=== PATIENT | male | born 1975 | race Caucasian/White ===

== ENCOUNTER → 2019-06-25 15:03 | Outpatient (CLI) | payer OTHER, SELFPAY ==
--- NOTE | 2019-06-25 | DI.RAD.S_ITS ---
PROCEDURE: XR CHEST 2V INDICATIONS: pleural effusion TECHNIQUE: 2 views of the chest were acquired. COMPARISON: None. FINDINGS: Surgical changes and devices: Sternotomy. Lungs and pleura: Small bilateral effusions are present with bibasilar atelectasis. A linear density is noted in the right apex. Mediastinum: Mediastinal contours are normal. Heart size is normal. Bones and chest wall: No suspicious bony abnormalities. Soft tissues appear unremarkable. IMPRESSION: 1. Small bilateral effusions are present. 2. A linear density is noted in the right apex, most likely an artifact as pulmonary vessels can be seen superior to the density. The small pneumothorax is less likely. There is no evidence for tension pneumothorax. If there is increasing shortness of breath, an expiratory chest x-ray is recommended for followup evaluation. The result was discussed with Dr. Mahajan on 06/25/2019 at 1715 hours. Dictated by: Mindi Yang M.D. on 06/25/2019 at 16:57 Approved by: Mindi Yang M.D. on 06/25/2019 at 18:02
[2019-06-25 16:18] LABS: Blood Urea Nitrogen 17 mg/dL (9-20); Calcium 9.9 mg/dL (8.4-10.2); Carbon Dioxide 28 mmol/L (22-32); Chloride 102 mmol/L (98-107); Estimated Glomerular Filt Rate > 60.0 mL/min (>60); Glucose 81 mg/dL (70-100); HEMOLYSIS < 15 (0-50); Sodium 141 mmol/L (137-145)
[2019-06-25 16:20] LABS: Potassium 5.7 mmol/L (3.4-5.1)
== END ==
PROVIDERS: Visit Provider Internal Medicine
DX: J90 Pleural effusion, not elsewhere classified (principal); I42.2 Other hypertrophic cardiomyopathy
CPT/HCPCS: 36415; 71046; 80048